=== PATIENT | female | born 1995 | race Caucasian/White ===

== ENCOUNTER 2017-05-20 10:46 | Emergency (ER) | payer MEDICAID ==
[2017-05-20 11:16] VITALS: BP 122/67; PULSE 85; RESP 14; TEMP 98.2; O2SAT 95
[2017-05-20] MEDS ORDERED: IBUPROFEN 600 MG TAB PO ONE ×2 (11:18→11:23)
--- NOTE | 2017-05-20 11:18 | EDPHY ---
H & P Time Seen by Provider: 05/20/17 11:09 HPI/ROS: CHIEF COMPLAINT: Right ankle injury HISTORY OF PRESENT ILLNESS: Patient is a 21-year-old female with previous right ankle injury who presents emergency department with right medial ankle pain. The patient states she initially injured her right ankle while in middle school. "I broke a couple of ligaments." She then later it, it is separate injury, broke her right ankle. This is not require surgery. Patient states that she tripped last evening. It did not initially heard. However, when she woke this morning she now complains of right ankle pain around her medial malleolus. It does not radiate up her leg. No numbness or tingling. No other injury. Pain is moderate. REVIEW OF SYSTEMS: Negative Past Medical/Surgical History: Previous right ankle injury Physical Exam: Vitals noted General Appearance: Alert and no distress. Head: Pupils equal. Normal. Respiratory: No respiratory distress. Cardiac: regular rate and rhythm. Extremities: (right lower extremity) Patient's right foot and ankle appear normal. No bruising or swelling. Patient has mild tenderness to palpation surrounding the medial malleolus. No crepitus. No proximal tib-fib tenderness palpation. No foot tenderness to palpation. Skin: No rashes or lesions. Neuro: Alert. Normal mood and affect. Allergies/Adverse Reactions: No Known Allergies Allergy (Unverified 05/20/17 11:10) Medical Decision Making ED Course/Re-evaluation: In the emergency department I discussed possible etiologies with the patient. She consented to an x-ray of her right ankle. Right ankle x-ray: Please refer the dictated report. No acute disease noted. I discussed the result with the patient. I answered all her questions. Patient was given a Matteson boot for comfort. She is given follow-up with Orthopedics. She is given warnings prior to leaving. She will return with worsening symptoms. Differential Diagnosis: My differential includes but is not limited to fracture, dislocation, sprain, strain, contusion Departure - Departure Disposition: Home, Routine, Self-Care Clinical Impression: Right ankle sprain Qualifiers: Encounter type: initial encounter Involved ligament of ankle: unspecified ligament Qualified Code(s): S93.401A - Sprain of unspecified ligament of right ankle, initial encounter Condition: Good Instructions: Ankle Sprain (ED) Additional Instructions: Your x-ray did not show any broken bones. You need follow-up with Orthopedics. Referrals: Shikha Bowen MD [Medical Doctor] - 5-7 days, call for appt.
== END 2017-05-20 12:15 | disposition home or self-care (01) ==
LOC: CED 10:46
DX: S93.401A Sprain of unspecified ligament of right ankle, initial encounter (principal); W01.0XXA Fall on same level from slipping, tripping and stumbling without subsequent striking against object, initial encounter
CPT/HCPCS: 73610-PO; L4386